=== PATIENT | female | born 1995 | race African-American/Black ===

== ENCOUNTER 2024-10-21 11:56 | Emergency (ER) | payer MEDICAID ==
[~2024-10-21] VITALS: Ht 162.6 cm; Wt 87.0 kg
[2024-10-21 12:04] VITALS: BP 133/80; PULSE 96; RESP 18; TEMP 98; O2SAT 98
--- NOTE | 2024-10-21 13:53 | ED.PDOC ---
Eye-HPI HPI Comments A 29 year-old female presents to the ED with a chief complaint of left eye pain as of yesterday. Patient states that with left eye pain, she is experiencing associated swelling and redness. Patient got OTC eye drops in an attempt to alleviate symptoms but notes no signs of relief. Patient has no further complaints at this time and otherwise denies migraine, blurred vision, chest pain, dizziness, or palpitations. Chief Complaint: Eye Problem Time Seen by MD: 13:15 Primary Care Provider: n/a Reviewed Notes: Nurses Notes, Medications, Allergies Allergies: Coded Allergies: NO KNOWN ALLERGIES (Unverified , 01/29/12) Information Source: Patient Mode of Arrival: Ambulatory Timing: Hours Duration: Since onset Prehospital treatment: None Quality: Pain, Red Eye Location: Left Onset: Spontaneous Associated signs and symptoms: Other (Left eye pain, swelling, redness ) Past Medical History PAST MEDICAL HISTORY: Denies Surgical History: Denies all surgeries ANESTHESIA TECH History: No Pertinent ANESTHESIA TECH History Family History Family History: Unobtainable Social History Smoker: Non-Smoker Alcohol: Occasionally Drugs: Denies Drug Use Lives In: Home Constitutional: denies: chills, diaphoresis, fatigue, fever, malaise, sweats, weakness, others EENTM: reports: eye pain, eye redness, others (left eye swelling ); denies: blurred vision, double vision, ear bleeding, ear discharge, ear drainage, ear pain, ear ringing, hearing loss, mouth pain, mouth swelling, nasal discharge, nose bleeding, nose congestion, nose pain, photophobia, tearing, throat pain, throat swelling, voice changes Respiratory: denies: cough, hemoptysis, orthopnea, SOB at rest, shortness of breath, SOB with excertion, stridor, wheezing, others Cardiovascular: denies: chest pain, dizzy spells, diaphoresis, Dyspnea on exertion, edema, irregular heart beat, left arm pain, lightheadedness, palpitations, PND, syncope, others Gastrointestinal: denies: abdomen distended, abdominal pain, blood streaked bowels, constipated, diarrhea, dysphagia, difficulty swallowing, hematemesis, melena, nausea, poor appetite, poor fluid intake, rectal bleeding, rectal pain, vomiting, others Genitourinary: denies: abnormal vagina bleeding, burning, dyspareunia, dysuria, flank pain, frequency, hematuria, incontinence, pain, , vagina discharge , urgency, others Neurological: denies: dizziness, fainting, headache, left sided numbness, left sided weakness, numbness, paresthesia, pre-existing deficit, right sided numbness, right sided weakness, seizure, speech problems, tingling, tremors, weakness, others Musculoskeletal: denies: back pain, gout, joint pain, joint swelling, muscle pain, muscle stiffness, neck pain, others Integumetry: denies: bruises, change in color, change in hair/nails, dryness, laceration, lesions, lumps, rash, wounds, others Allergic/Immunocompromised: denies: Difficulty Healing, Frequent Infections, Hives, Itching, others Hematologic/Lymphatic: denies: anemia, blood clots, easy bleeding, easy bruising, swollen glands, others Endocrine: denies: excessive hunger, excessive sweating, excessive thirst, excessive urination, flushing, intolerance to cold, intolerance to heat, unexplained weight gain, unexplained weight loss, others Psychiatric: denies: anxiety, bipolar disorder, depression, hopeless, panic di sorder, schizophrenia, sleepless, suicidal, others All Other Systems: Reviewed and Negative Physical Exam General Appearance: Mild Distress HEENT: Other (Left conjunctivitis) Neck: Full Range of Motion, Non-Tender, Normal, Normal Inspection Respiratory: Chest Non-Tender, Lungs Clear, No Accessory Muscle Use, No Respiratory Distress, Normal Breath Sounds Cardiovascular: No Edema, No JVD, No Murmur, No Gallop, Normal Peripheral Pulses, Regular Rate/Rhythm Breast Exam: Deferred Gastrointestinal: No Organomegaly, Non Tender, No Pulsatile Mass, Normal Bowel Sounds, Soft Genitalia: Deferred Pelvic: Deferred Rectal: Deferred Extremities: No calf tenderness, Normal capillary refill, Normal inspection, Normal range of motion, Non-tender, No pedal edema 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 Was a procedure done?: No EENT DIFF Eye: Allergic, Bacterial, Corneal Ulceration Ear: N/A Nose: N/A Mouth: N/A Sore Throat: N/A X-Ray, Labs, Meds, VS Vital Signs Date Time Temp Pulse Resp B/P (MAP) Pulse Ox O2 Delivery O2 Flow Rate FiO2 10/21/24 12:04 98.0 96 18 133/80 (97) 98 98.0 X-Ray, Labs, Meds, VS Comment Course in the emergency department eventful patient came in with a conjunctivitis to the left eye no foreign body Time of 1ST Reevaluation: 14:23 Reevaluation 1ST: Unchanged Time of 2ND Reevaluation: 14:28 Reevaluation 2ND: Improved Consultation: PCP Patient Education/Counseling: Diagnosis, Treatment, Prognosis, Need For Follow Up Family Education/Counseling: Diagnosis, Treatment, Prognosis, Need For Follow Up, No Family Present SEPSIS Sepsis Screen Date sepsis recognized/suspect: Oct 21, 2024 Time Sepsis recognized/suspect: 1204 Recent Procedure: No On Antibiotic Therapy: No Respiratory Rate >20: No Heart Rate >90: Yes Temp<36 C (96.8 F) or >38.3 C: No SBP <90 or MAP <65 mmHG: No New Acute Mental Status Change: No Is the patient on CPAP, BIPAP,: No Vital Signs Date Time Temp Pulse Resp B/P (MAP) Pulse Ox O2 Delivery O2 Flow Rate FiO2 10/21/24 12:04 98.0 96 18 133/80 (97) 98 98.0 Departure 1 Departure Time of Disposition: 14:28 Impression: Primary Impression: Acute conjunctivitis, left eye Disposition: 01 HOME / SELF CARE / HOMELESS Condition: Stable Additional Instructions: Apply the eye drop as directed to both eyes e-Prescriptions [id number] (MAXITROL 0.1% OPTHALMIC SUSPENSION) [address] 1 DROP OP BID for 5 Days, #5 DROP Prov: SHANNON RUIZ MD 10/21/24 Discharged With: Self Critical Care Note Critical Care Time?: No Stability Stability form required: No Heart Score Heart Score: Heart Score Response (Comments) Value History N/A 0 EKG N/A 0 Age <45 0 Risk Factors No known risk factors 0 Troponin N/A 0 Total 0 I personally scribed for SHANNON RUIZ MD ([email or web address]) on 10/21/24 at 13:53. Electronically submitted by Leonora Wood ([email or web address]). I personally scribed for SHANNON RUIZ MD ([email or web address]) on 10/21/24 at 14:24. Electronically submitted by Leonora Wood ([email or web address]). SHANNON RUIZ MD Oct 21, 2024 13:53
[2024-10-21] MEDS ORDERED: MAX5OPS OP (14:31)
== END 2024-10-21 14:29 | disposition home or self-care (01) ==
LOC: ER 11:56
DX: H10.32 Unspecified acute conjunctivitis, left eye (principal)